=== PATIENT | male | born 1980 | race Caucasian/White ===

== ENCOUNTER 2017-12-28 22:26 | Emergency (ER) | payer BC ==
[2017-12-28] MEDS ORDERED: ORPHENADRINE 30 MG/ML 2 ML VIAL IM STA (23:39)
[2017-12-28] MEDS ORDERED: HYDROcodone/APAP 5-325MG 1 EACH TAB PO STA (23:39)
[2017-12-28] MEDS ORDERED: KETOROLAC 60 MG/2 ML VIAL IM STA (23:39)
--- NOTE | 2017-12-29 00:48 | XR ---
EXAMINATION TYPE: XR Hip LT and AP Pelvis DATE OF EXAM: 12/29/2017 COMPARISON: NONE HISTORY: Pain TECHNIQUE: A single AP view of the pelvis is obtained. Two views of the left hip are obtained. FINDINGS: The pelvic ring is intact. Proximal left femur and hip joint appear intact. There is no sig n of hip dysplasia. There is minimal calcification at the greater trochanter consistent with old inju ry. Sacroiliac joints appear intact. IMPRESSION: No acute abnormality of the left hip. There is evidence of old calcification consistent with trochant ronit bursitis.
--- NOTE | 2017-12-29 00:49 | XR ---
EXAMINATION TYPE: XR lumbar spine 2 or 3V DATE OF EXAM: 12/29/2017 COMPARISON: NONE HISTORY: Fall. Back pain TECHNIQUE: 3 views FINDINGS: Lumbar vertebra have normal spacing and alignment. Posterior elements are intact. There is no compression fracture. Sacroiliac joints appear intact. IMPRESSION: Normal lumbar spine.
--- NOTE | 2017-12-29 00:50 | XR ---
EXAMINATION TYPE: XR knee complete LT DATE OF EXAM: 12/29/2017 COMPARISON: NONE HISTORY: Fall today. Pain TECHNIQUE: 3 views FINDINGS: I see no fracture nor dislocation. Joint spaces are normal. There is no sign of any joint e ffusion. IMPRESSION: Negative left knee exam.
--- NOTE | 2017-12-29 01:16 | ED ---
Extremity Problem HPI - General Chief complaint: Extremity Problem,Nontraumatic Stated complaint: Hip pain Time Seen by Provider: 12/28/17 22:33 Source: patient, RN notes reviewed, old records reviewed Mode of arrival: wheelchair Limitations: no limitations - History of Present Illness Initial comments: Patient 37-year-old male presents emergency Department chief complaint of pain over the left hip radiating down the leg. He reports that today while he was working in the yard he did trip and twisted his leg. Patient states the pain radiates down towards his knee. He denies any saddle anesthesias. Denies abdominal pain.Patient denies any recent fever, chills, shortness of breath, chest pain, abdominal pain, nausea vomiting, numbness or tingling, dysuria or hematuria, constipation or diarrhea, headaches or visual changes, or any other current symptoms - Related Data Home Medications Medication Instructions Recorded Confirmed Cetirizine HCl [Zyrtec] 10 mg PO DAILY PRN 01/23/17 01/23/17 [place]-3 Fatty Acids/Fish Oil [Fish 1 cap PO DAILY 01/23/17 01/23/17 Oil 1,000 mg Softgel] Previous Rx's Medication Instructions Recorded Cyclobenzaprine [Flexeril] 10 mg PO TID #20 tab 12/29/17 Ibuprofen [Motrin] 800 mg PO TID #20 tab 12/29/17 traMADol HCL [Ultram] 50 mg PO Q4HR PRN 3 Days #18 tab 12/29/17 Allergies Allergy/AdvReac Type Severity Reaction Status Date / Time milk AdvReac Nausea Verified 12/28/17 22:30 Review of Systems ROS Statement: Those systems with pertinent positive or pertinent negative responses have been documented in the HPI. ROS Other: All systems not noted in ROS Statement are negative. Past Medical History Past Medical History: GI Bleed Additional Past Medical History / Comment(s): hx colon polyps History of Any Multi-Drug Resistant Organisms: None Reported Past Surgical History: Hernia Repair Additional Past Surgical History / Comment(s): wisdom teeth, fillings, colonoscopy Past Anesthesia/Blood Transfusion Reactions: No Reported Reaction Additional Past Anesthesia/Blood Transfusion Reaction / Comment(s): never had blood transfusion Past Psychological History: No Psychological Hx Reported Smoking Status: Never smoker Past Alcohol Use History: Occasional Past Drug Use History: None Reported - Past Family History Mother Family Medical History: Cancer Additional Family Medical History / Comment(s): melanoma General Exam - General Exam Comments Initial Comments: Well-appearing 37-year-old male. No acute distress. Limitations: no limitations General appearance: alert, in no apparent distress Head exam: Present: atraumatic, normocephalic, normal inspection Eye exam: Present: normal appearance, PERRL, EOMI. Absent: scleral icterus, conjunctival injection, periorbital swelling ENT exam: Present: normal exam, mucous membranes moist Neck exam: Present: normal inspection. Absent: tenderness, meningismus, lymphadenopathy Respiratory exam: Present: normal lung sounds bilaterally. Absent: respiratory distress, wheezes, rales, rhonchi, stridor GI/Abdominal exam: Present: soft, normal bowel sounds. Absent: distended, tenderness, guarding, rebound, rigid Extremities exam: Present: normal inspection, full ROM, normal capillary refill. Absent: tenderness, pedal edema, joint swelling, calf tenderness Back exam: Present: normal inspection Neurological exam: Present: alert, oriented X3, CN II-XII intact Psychiatric exam: Present: normal affect, normal mood Skin exam: Present: warm, dry, intact, normal color. Absent: rash Course Vital Signs 12/28/17 12/29/17 22:27 01:27 Temperature 98.6 F 98.9 F Pulse Rate 89 78 Respiratory 16 18 Rate Blood Pressure 148/94 104/51 O2 Sat by Pulse 97 96 Oximetry Medical Decision Making - Medical Decision Making This patient's a 37-year-old male who presents returns today with left leg pain. At this time he is some tenderness over the left intertrochanteric and IT band. Patient has full range of motion of the knee. Normal pulses and sensation distally. At this time as his of the pelvis lower back and knee are obtained.No acute abdomen on the left hip. Evidence of old calcification consistent with trochanteric bursitis. Negative left knee exam. Normal lumbar spine. Patient was given IM medication. [place]. He does have some improvement. Discussed this time patient's pain most likely is related to musculoskeletal strain. Patient has no significant bony or maladies. Was informed of evidence of trochanteric bursitis. Patient will be following up with adaptive physical education specialist. All questions answered and return parameters were discussed. - Radiology Data Radiology results: report reviewed No acute abdomen on the left hip. Evidence of old calcification consistent with trochanteric bursitis. Negative left knee exam. Normal lumbar spine. Disposition Clinical Impression: Strain of left hip, Sciatica Disposition: HOME SELF-CARE Condition: Good Instructions: Sciatica (ED) Additional Instructions: Advised to rest, ice, and elevate extremity. Patient should take medications as prescribed. Follow-up with primary care physician. Return to emergency department if any alarming signs or symptoms occur. Prescriptions: Cyclobenzaprine [Flexeril] 10 mg PO TID #20 tab Ibuprofen [Motrin] 800 mg PO TID #20 tab traMADol HCL [Ultram] 50 mg PO Q4HR PRN 3 Days #18 tab PRN Reason: Pain Is patient prescribed a controlled substance at d/c from ED?: No Referrals: Jazmine Teixeira III, MD [Primary Care Provider] - 1-2 days Vic Correa MD [STAFF PHYSICIAN] - 1-2 days Time of Disposition: 01:13
[2017-12-29 01:28] VITALS: BP 104/51; PULSE 78; RESP 18; TEMP 98.9
== END 2017-12-29 01:27 | disposition home or self-care (01) ==
LOC: EC 22:26
DX: S76.012A Strain of muscle, fascia and tendon of left hip, initial encounter (principal); M54.30 Sciatica, unspecified side; Z79.899 Other long term (current) drug therapy; Z91.011 Allergy to milk products; X50.1XXA Overexertion from prolonged static or awkward postures, initial encounter; Y92.096 Garden or yard of other non-institutional residence as the place of occurrence of the external cause
CPT/HCPCS: 72100; 73502; 73562; 99284; 96372 ×2; J2360; J1885

== ENCOUNTER → 2022-06-20 | Outpatient (CLI) | payer BC ==
--- NOTE | 2022-06-20 12:01 | CA ---
Exercise Nuclear Stress Test Report Name: Montana Castro Exam Date: 06/20/2022 09:14 Exam Location: [facility] Stress Ht (in): 68 Wt (lb): 215 BSA: 2.11 Ordering Phys: Jazmine Teixeira MD Referring Phys: Yoana TEIXEIRA III,, Technologist: BONNIE,, Age: 42 Gender: M : 1980 Procedure CPT: Indications: R0789 ICD-10 Codes: Patient History: Chest pain and palpitations Medications: Meds past 24 hrs: Pretest Chest Pain: STRESS TEST Chase Protocol Exercise Duration (min:sec): 11:[address] Depressions (mm): Angina Score: Ferris Score: Resting HR (bpm): 53 Peak HR (bpm): 165 Resting BP (mmHg): 110 / 82 Peak BP (mmHg): 197 / 60 MPHR: 176 Target HR: 150 % MPHR: 94 METS: 12.9 Total Dose: Peak Dose: Atropine: Double Product: 65096 BP Response: Stress Termination: Reached target heart rate Stress Symptoms: No chest pain or symptoms Stress Summary: ECG ANALYSIS Resting ECG: Stress ECG: CONCLUSIONS Baseline EKG revealed a normal sinus rhythm without significant ST-T changes. Patient walked on a standard Chase protocol for 11 minutes 5 seconds and achieved a maximum heart rate of 165 bpm which is available 85% of predicted maximal. There was no angina. There was no arrhythmia and there were no ST segment changes to indicate ischemia. This is a negative stress test by EKG criteria with excellent exercise capacity. The nuclear scan results which are more pertinent will be reported by the radiologist Dr. Maikol Warren MD (Electronically Signed) Final Date: 20 Jun 2022 12:00
--- NOTE | 2022-06-20 18:59 | NM ---
EXAMINATION TYPE: NM stress cardiolite complete DATE OF EXAM: 06/20/2022 COMPARISON: NONE HISTORY: Chest pain TECHNIQUE: After the intravenous administration of 9.6 mCi Tc 99m Sestamibi - Cardiolite resting SPE CT images acquired 45 minutes post injection. At peak stress 25.5 mCi Tc 99m Sestamibi - Stress images obtained 25 minutes post injection The patient was stressed with 0.4mg Lexiscan. FINDINGS: Polar maps suggest diminished radiotracer accumulation along the septal wall near the cardiac base. T his appears improved on the resting images. Some stress-induced ischemic change could be considered. Wall motion is normal. Septal wall motion appears normal. Ejection fraction is calculated to be 60 %. IMPRESSION: 1. Suggestion of stress-induced ischemic change proximal septal wall near the cardiac base.
== END | disposition home or self-care (01) ==
LOC: RADNMMAIN 07:50
PROVIDERS: ATTEND Family Medicine
DX: R07.89 Other chest pain (principal); R00.2 Palpitations; Z82.49 Family history of ischemic heart disease and other diseases of the circulatory system
CPT/HCPCS: 93017; 78452; A9500